=== PATIENT | male | born 1960 | race Caucasian/White ===

== ENCOUNTER 2017-11-23 10:25 | Emergency (ER) | payer BC ==
[2017-11-23 10:55] VITALS: BP 138/68
--- NOTE | 2017-11-23 11:34 | UC ---
Abdominal Pain Male HPI - HPI Summary HPI Summary: Patient is here with epigastric pain that started last night, vomiting x2, last BM 24 hours. Pain is 10/10 when it happens. comes and goes - History of Current Complaint Chief Complaint: UCAbdominalPain Stated Complaint: STOMACH PAIN 1 DAY Time Seen by Provider: 11/23/17 10:43 Onset/Duration: Sudden Onset, Lasting Days - 1 Timing: Constant Severity Initially: Moderate Severity Currently: Moderate Pain Intensity: 7 Location: Epigastric Character: Cramping, Sharp Aggravating Factor(s): Nothing Alleviating Factor(s): Spontaneous Resolution Associated Signs And Symptoms: Positive: Diaphoresis, Decreased Appetite - Allergies/Home Medications Allergies/Adverse Reactions: Allergies Allergy/AdvReac Type Severity Reaction Status Date / Time environmental Allergy Sneezing Uncoded 11/23/17 10:56 Home Medications: Home Medications Calcium Carbonate CHEW TAB* [Tums*] 1,000 mg PO ONCE PRN 11/23/17 [History Confirmed 11/23/17] PMH/Surg Hx/FS Hx/Imm Hx Previously Healthy: Yes - Surgical History Surgical History: Yes Surgery Procedure, Year, and Place: APPENDECTOMY, BLATERAL KNEE SURGERY, PROSTATE REMOVAL, cholecystectomy, Hemmoragic stroke 2016 - Family History Family History: neg for htn or cad - Social History Alcohol Use: None Substance Use Type: None Smoking Status (MU): Never Smoked Tobacco Review of Systems Constitutional: Negative Skin: Negative Eyes: Negative ENT: Negative Respiratory: Negative Cardiovascular: Negative Gastrointestinal: Abdominal Pain, Vomiting, Nausea Genitourinary: Negative Motor: Negative Neurovascular: Negative Musculoskeletal: Negative Neurological: Negative Psychological: Negative Is Patient Immunocompromised?: No All Other Systems Reviewed And Are Negative: Yes Physical Exam Triage Information Reviewed: Yes Appearance: Well-Nourished, Ill-Appearing, Pain Distress Vital Signs: Initial Vital Signs Temp 98.1 F 11/23/17 10:45 Pulse 57 11/23/17 10:45 Resp 20 11/23/17 10:45 BP 138/68 11/23/17 10:45 Pulse Ox 100 11/23/17 10:45 Vital Signs Reviewed: Yes Eye Exam: Normal ENT Exam: Normal Dental Exam: Normal Neck exam: Normal Respiratory Exam: Normal Respiratory: Positive: Chest non-tender, Lungs clear, Normal breath sounds Cardiovascular Exam: Normal Cardiovascular: Positive: RRR, No Murmur, Pulses Normal Abdomen Description: Positive: No Organomegaly, Soft, CVA Tenderness (R) - neg, CVA Tenderness (L) - neg, Other: - small protusion mid epigstric, patient states it is new Bowel Sounds: Positive: Hypoactive Musculoskeletal Exam: Normal Neurological Exam: Normal Psychological Exam: Normal Skin Exam: Normal Abd Pain Male Course/Dx - Course Course Of Treatment: hx obtained, exam performed ,meds reviewed, consulted Dr Koo and patient was d/c receommend follow up in ER. spoke with Nathaniel Langston in [facility] ER. - Differential Dx/Clinical Impression Differential Diagnosis/HQI/PQRI: Abdominal Aortic Aneurysm, Constipation, Hepatitis, Pancreatitis, Urinary Tract Infection Provider Diagnoses: acute abdominal pain - Physician Notification/Consults Instructed by Provider To: MD Will See In ED Discharge - Sign-Out/Discharge Documenting (check all that apply): Patient Departure - Discharge Plan Condition: Stable Disposition: HOME-RECOMMEND TO ED Patient Education Materials: Acute Abdominal Pain (ED) Referrals: Jose Agee MD [Primary Care Provider] - Additional Instructions: 1. I recommend that you head directly to the ER for further evaluation. - Billing Disposition and Condition Condition: STABLE Disposition: Home-Recommend to ED
== END 2017-11-23 11:30 | disposition home health service (06) ==
LOC: UCCORT 10:25
DX: R10.13 Epigastric pain (principal); Z91.09 Other allergy status, other than to drugs and biological substances
CPT/HCPCS: 81003; 99212; G0463